=== PATIENT | male | born 1950 | race Caucasian/White ===

== ENCOUNTER 2020-11-30 16:04 | Inpatient (IN) ==
[2020-12-01] MEDS ORDERED: Nitroglycerin 0.4 MG TAB.SUBL SL PRN (13:07)
[2020-12-01] MEDS: Melatonin 3 MG TABLET PO SCH (20:04)
[2020-12-01] MEDS: traZODone 50 MG TABLET PO SCH (20:04)
[2020-12-02 06:44] LABS: Basophils % 0.2 %; Eosinophils % 0.1 %; Hematocrit 39.3 % (37.5-50.1); Hemoglobin 13.8 g/dL (12.9-16.9); Immature Granulocytes % 0.5 % (0-4); Lymphocytes # 0.6 K/mcL (0.6-4.6); Lymphocytes % 3.1 %; Mean Corpuscular HGB Conc 35.1 g/dL (31.6-35.5); Mean Corpuscular Hemoglobin 28.9 pg (28.0-33.3); Mean Corpuscular Volume 82.2 fL (83.0-100.0); Monocytes # 0.7 K/mcL (0.0-1.3); Monocytes % 3.6 %; Red Blood Count 4.78 M/mcL (4.19-5.50); Red Cell Distribution Width 13.7 % (11.5-14.5); Segmented Neutrophils % 92.5 %; White Blood Count 18.4 K/mcL (4.3-11.1)
[2020-12-02 07:00] LABS: BUN/Creatinine Ratio 44 (6-26); Blood Urea Nitrogen 35 mg/dL (8-23); Calcium 7.8 mg/dL (8.6-10.3); Carbon Dioxide 23 mEq/L (23-29); Chloride 100 mEq/L (98-107); Glucose 95 mg/dL (70-105); Osmolality,Calculated 286 (280-300); Sodium 134 mEq/L (136-145); eGFR For African Americans > 60 (> 60); eGFR For Non-African Americans > 60 (> 60)
[2020-12-02 07:13] LABS: Platelet Count 71 K/mcL (140-400)
[2020-12-02 07:41] LABS: Platelet Estimate Decreased (Normal)
[2020-12-02] MEDS: Cholecalciferol (D-3) 1,000 UNIT (25MCG) TABLET PO SCH (08:56)
[2020-12-02] MEDS: Furosemide 20 MG TABLET PO SCH (08:57)
[2020-12-02] MEDS: Dexamethasone 4 MG/ML VIAL IVP SCH (08:57)
[2020-12-02] MEDS: Finasteride 5 MG TABLET PO SCH (08:57)
[2020-12-02] MEDS: Aspirin 325 MG TABLET PO SCH (08:57)
[2020-12-02] MEDS ORDERED: lisinopriL 10 MG TABLET PO SCH (09:00)
[2020-12-02] MEDS: Melatonin 3 MG TABLET PO SCH (20:49)
[2020-12-02] MEDS: traZODone 50 MG TABLET PO SCH (20:49)
[2020-12-03] MEDS: Cholecalciferol (D-3) 1,000 UNIT (25MCG) TABLET PO SCH (08:32)
[2020-12-03] MEDS: Furosemide 20 MG TABLET PO SCH (08:32)
[2020-12-03] MEDS: Dexamethasone 4 MG/ML VIAL IVP SCH (08:33)
[2020-12-03] MEDS: Aspirin 325 MG TABLET PO SCH (08:33)
[2020-12-03] MEDS: Finasteride 5 MG TABLET PO SCH (08:33)
[2020-12-03] MEDS: traZODone 50 MG TABLET PO SCH (22:15)
[2020-12-03] MEDS: Melatonin 3 MG TABLET PO SCH (22:15)
[2020-12-04 07:46] VITALS: BP 112/62
[2020-12-04] MEDS: Furosemide 20 MG TABLET PO SCH (08:10)
[2020-12-04] MEDS: Aspirin 325 MG TABLET PO SCH (08:11)
[2020-12-04] MEDS: Cholecalciferol (D-3) 1,000 UNIT (25MCG) TABLET PO SCH (08:11)
[2020-12-04] MEDS: Finasteride 5 MG TABLET PO SCH (08:11)
[2020-12-04] MEDS: Dexamethasone 4 MG/ML VIAL IVP SCH (08:12)
[2020-12-04 08:39] LABS: Basophils % 0.1 %; Eosinophils # 0.1 K/mcL (0.0-0.6); Eosinophils % 0.6 %; Hematocrit 42.5 % (37.5-50.1); Hemoglobin 14.8 g/dL (12.9-16.9); Immature Granulocytes % 0.4 % (0-4); Lymphocytes # 0.7 K/mcL (0.6-4.6); Lymphocytes % 4.5 %; Mean Corpuscular HGB Conc 34.8 g/dL (31.6-35.5); Mean Corpuscular Volume 83.2 fL (83.0-100.0); Mean Platelet Volume 11.9 fL (9.4-12.4); Monocytes # 0.4 K/mcL (0.0-1.3); Monocytes % 2.6 %; Neutrophils # 14.3 K/mcL (1.6-8.9); Platelet Count 69 K/mcL (140-400); Red Blood Count 5.11 M/mcL (4.19-5.50); Red Cell Distribution Width 13.8 % (11.5-14.5); Segmented Neutrophils % 91.8 %; White Blood Count 15.6 K/mcL (4.3-11.1)
[2020-12-04 08:58] LABS: Alanine Aminotransferase 160 Units/L (7-52); Albumin/Globulin Ratio 1.2 (1.1-2.2); Alkaline Phosphatase 122 Units/L (34-104); Aspartate Amino Transferase 72 Units/L (13-39); BUN/Creatinine Ratio 28 (6-26); Bilirubin,Total 0.8 mg/dL (0.3-1.0); Blood Urea Nitrogen 24 mg/dL (8-23); Calcium 7.9 mg/dL (8.6-10.3); Carbon Dioxide 24 mEq/L (23-29); Chloride 100 mEq/L (98-107); Globulin 2.6 g/dL (2.4-3.5); Glucose 94 mg/dL (70-105); Osmolality,Calculated 286 (280-300); Potassium 3.7 mEq/L (3.5-5.1); Sodium 136 mEq/L (136-145); Total Protein 5.6 g/dL (6.4-8.9); eGFR For African Americans > 60 (> 60); eGFR For Non-African Americans > 60 (> 60)
== END 2020-12-04 10:40 | disposition short-term general hospital (02) | DRG 177 ==
LOC: INPPIK 12-01 14:48
PROVIDERS: ADMIT Family Medicine; ATTEND Family Medicine